=== PATIENT | female | born 1945 | race Caucasian/White ===

== ENCOUNTER 2017-06-01 06:18 | Day surgery (SDC) | payer MEDICARE ==
[~2017-06-01] VITALS: Ht 162.6 cm; Wt 71.2 kg
[~2017-06-01 06:18] MED LIST: CALCIUM600 MG PO; CENTRUM ADULTS1 EACH PO; FENOFIBRATE160 MG PO; FOLIC ACID0.4 MG; IRON160 MG PO; TIROSINT100 MCG PO; VITAMIN C500 M1 PO
[2017-06-01] MEDS ORDERED: B COMPLEX1 EACH PO (06:43)
--- NOTE | 2017-06-01 07:49 | NUR ---
PT ALERT, ORIENTED AND HERE FOR A ROUTINE SCOPE. SHE MENTIONED IT HAS BEEN 10 YRS SINCE HER LAST, AND SHE SAID SHE HOPES THIS WILL BE HER LAST. PT SEEMED PREPARED, FEW QUESTIONS, REQUESTED PRAYED. I WILL FOLLOW NEEDED
--- NOTE | 2017-06-01 08:10 | NUR ---
06/01/17 0810 Lesvia Huang PT HAS AN IV IN RIGHT HAND THAT IS WNL AND CDI. PT IS PASSING GAS AND IS ENCOURAGED TO PASS GAS TO RELEIVE ABD CRAMPING. PT O2 SAT 99%, O2 TURNED OFF.
--- NOTE | 2017-06-02 15:15 | OR ---
[facility] [address], [place] [address] Signed DATE OF PROCEDURE: 06/01/17 PREOPERATIVE DIAGNOSIS History of hyperplastic polyp 2006, left-sided abdominal pain. POSTOPERATIVE DIAGNOSES Possible hyperplastic polyp of splenic flexure (excised). Internal hemorrhoids. PROCEDURE Total colonoscopy to cecum with cold morcellation polypectomy x1. SURGEON: Jhoaan Garrido MD. ANESTHESIA: Intravenous sedation with Fentanyl 100 mcg, Versed 3 mg. INDICATION This 72-year-old white woman has a history of colonoscopy in 2006 at which time, she was found to have a hyperplastic polyp. She had mild proctitis and rectal biopsy as well. She is here for surveillance colonoscopy upon referral from Dr. Julio. She has no blood per rectum or diarrhea or constipation, but does have some left-sided abdominal pain. She has no family history of colon cancer. She is admitted to undergo colonoscopy. Understand the risks of bleeding, infection, and perforation. FINDINGS The prep was excellent. Complete colonoscopy was undertaken to the cecum. She did have internal hemorrhoidal changes without associated bleeding. There was a small mucosal abnormality of the splenic flexure suggestive of hyperplastic polyp but that is not certain. It certainly did not appear to be adenomatous. PROCEDURE The patient was brought to the endoscopy suite and placed in lateral decubitus position. Given intravenous sedation to the point of slurred speech and nystagmus. Digital rectal examination was normal. An Olympus video colonoscope was passed in the rectum and manipulated throughout the colon ultimately intubating the cecum itself. The ileocecal valve and appendiceal orifice were normal. The scope was withdrawn from that point and examination throughout was undertaken showing no abnormality until about the splenic flexure where a small mucosal abnormality was noted. Narrow band imaging was used which suggested a hyperplastic appear i ng polyp. This was excised with cold morcellation technique. The scope was further withdrawn and no other abnormalities of concern. Retroflexed view Electronically Signed By: JHOANA GARRIDO MD 06/02/17 1515 PATIENT NAME: MATIAS BRANCH OPERATIVE REPORT DATE OF : 45 PHYSICIAN: JHOANA GARRIDO MD REPORT #: [id number] REPORT IS CONFIDENTIAL AND NOT TO BE RELEASED WITHOUT AUTHORIZATION [facility] [address], [place] [address] Signed showed internal hemorrhoids. The scope was removed and the patient taken to recovery room in good condition. CONCLUDING DIAGNOSES Internal hemorrhoids. Possible hyperplastic polyp of splenic flexure. PLAN Recommend high-fiber diet. Repeat colonoscopy in 10 years if clinically indicated, sooner of course, if symptoms should occur. MD KRISTA Brandon/[place] /[id number] cc: Luis Julio MD Electronically Signed By: JHOANA GARRIDO MD 06/02/17 1515 PATIENT NAME: MATIAS BRANCH OPERATIVE REPORT DATE OF : 45 PHYSICIAN: JHOANA GARRIDO MD REPORT #: [id number] REPORT IS CONFIDENTIAL AND NOT TO BE RELEASED WITHOUT AUTHORIZATION
== END 2017-06-01 08:52 | disposition home or self-care (01) ==
LOC: OPS 06:18 → DS 06:45 → OPS 06:45
PROVIDERS: Surgery
PROC: 0DBL8ZX Excision of Transverse Colon, Via Natural or Artificial Opening Endoscopic, Diagnostic (ICD-10-PCS; principal; 2017-06-01 06:45)
DX: K64.8 Other hemorrhoids (principal); E03.9 Hypothyroidism, unspecified; M81.0 Age-related osteoporosis without current pathological fracture; Z86.010 Personal history of colon polyps; Z88.0 Allergy status to penicillin; Z90.710 Acquired absence of both cervix and uterus; Z98.890 Other specified postprocedural states
CPT/HCPCS: 88305; 99152; 99153; J2250; J3010; J7120

== ENCOUNTER 2022-11-11 18:51 | Emergency (ER) | payer MEDICARE ==
[~2022-11-11] VITALS: Ht 162.6 cm; Wt 76.2 kg
[~2022-11-11 18:51] MED LIST changes: +B COMPLEX1 EACH PO
--- NOTE | 2022-11-11 21:53 | EKG ---
[facility] [address] [facility] [place] [address] Signed Normal sinus rhythm Nonspecific ST and T wave abnormality Abnormal ECG No previous ECGs available Confirmed by Soraya Gomes MD () on 11/11/2022 9:52:52 PM Electronically Signed By: SORAYA GOMES MD 11/11/222152 PATIENT NAME: MATIAS BRANCH Electrocardiogram DATE OF : 45 PHYSICIAN: SORAYA GOMES MD REPORT #: [id number] REPORT IS CONFIDENTIAL AND NOT TO BE RELEASED WITHOUT AUTHORIZATION
== END 2022-11-11 20:01 | disposition home or self-care (01) ==
LOC: ED 18:51
DX: R07.89 Other chest pain (principal); E03.9 Hypothyroidism, unspecified; Z87.891 Personal history of nicotine dependence; Z88.0 Allergy status to penicillin; Z79.899 Other long term (current) drug therapy
CPT/HCPCS: 36415; 71045; 80053; 83735; 84484; 85025; 93005; 93010; 99285-25